=== PATIENT | female | born 2000 | race Caucasian/White ===

== ENCOUNTER 2018-02-18 15:11 | Emergency (ER) | payer MEDICAID ==
[~2018-02-18] VITALS: Ht 167.6 cm; Wt 136.1 kg
[2018-02-18 16:10] LABS: HEMATOCRIT 42.5 % (37.0-47.0); MCH 29.3 pg (26.0-34.0); MCV 88.9 fL (80.0-100.0); RBC 4.78 mil/uL (4.20-5.00); RDW 14.1 % (10.5-14.5); WBC 10.1 thou/uL (4.0-11.0)
[2018-02-18 16:17] LABS: CALCIUM 9.2 mg/dL (8.5-10.1); CREATININE 0.8 mg/dL (0.6-1.0); POTASSIUM 3.8 mmol/L (3.5-5.1)
[2018-02-18 17:54] VITALS: BP 113/70
[2018-02-18] MEDS ORDERED: MOBIC15 MG PO (18:09)
== END 2018-02-18 18:22 | disposition home or self-care (01) ==
LOC: ER 15:11
PROVIDERS: Emergency Medicine
DX: N93.8 Other specified abnormal uterine and vaginal bleeding (principal); F17.210 Nicotine dependence, cigarettes, uncomplicated; Z88.8 Allergy status to other drugs, medicaments and biological substances; Z91.018 Allergy to other foods

== ENCOUNTER 2018-06-22 22:10 | Emergency (ER) | payer MEDICAID ==
[~2018-06-22] VITALS: Ht 167.6 cm; Wt 136.1 kg
[~2018-06-22 22:10] MED LIST: MOBIC15 MG PO
[2018-06-22] MEDS ORDERED: TRINESSA (22:21)
[2018-06-22] MEDS ORDERED: TRAMADOL 50 MG50 MG PO (23:32)
[2018-06-22] MEDS ORDERED: NAPROSYN500 MG PO (23:32)
[2018-06-22] MEDS ORDERED: ZOFRAN8 MG PO (23:47)
[2018-06-23 00:54] VITALS: BP 103/55
== END 2018-06-23 00:56 | disposition home or self-care (01) ==
LOC: ER 22:10
DX: S30.0XXA Contusion of lower back and pelvis, initial encounter (principal); W01.0XXA Fall on same level from slipping, tripping and stumbling without subsequent striking against object, initial encounter; Y93.89 Activity, other specified; Y92.89 Other specified places as the place of occurrence of the external cause; Y99.8 Other external cause status; F17.210 Nicotine dependence, cigarettes, uncomplicated; Z88.8 Allergy status to other drugs, medicaments and biological substances